=== PATIENT | female | born 1990 | race Caucasian/White ===

== ENCOUNTER 2022-11-01 19:11 | Emergency (ER) | payer MEDICAID ==
[~2022-11-01] VITALS: Ht 162.6 cm; Wt 56.7 kg
[2022-11-01 19:36] VITALS: BP 121/66
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
[2022-11-01] MEDS ORDERED: BACI/NEOM/POLY B OINT PKT 1 UDPKT PACKET ONE (19:47)
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
[2022-11-01] MEDS ORDERED: BACI3.5O23 OP (19:54)
[2022-11-01] MEDS: BACITRACIN ZINC OINT PACKET 1 EA PACKET TP ONE (19:56)
--- NOTE | 2022-11-01 20:01 | NUR ---
Patient discharged to home in stable condition. Written and verbal after care instructions given. Patient verbalizes understanding of instruction. pt ambulatory with a steady gait
== END 2022-11-01 20:02 | disposition home or self-care (01) ==
LOC: ER 19:18
DX: T54.3X1A Toxic effect of corrosive alkalis and alkali-like substances, accidental (unintentional), initial encounter (principal); T20.56XA Corrosion of first degree of forehead and cheek, initial encounter; J45.909 Unspecified asthma, uncomplicated; Y93.89 Activity, other specified; Y92.89 Other specified places as the place of occurrence of the external cause; Y99.8 Other external cause status